=== PATIENT | female | born 1945 | race Caucasian/White ===

== ENCOUNTER 2016-10-28 09:33 | Emergency (ER) | payer OTHER ==
[~2016-10-28] VITALS: Ht 157.5 cm; Wt 120.0 kg
[~2016-10-28 09:33] MED LIST: ALLO300T2 PO; ASPI325T10 PO; DUONI NEB; FLUT1INH INH; GLIP5 PO; ISOS30TA3 PO; LASI20TA PO; METF850T PO; MOBI15TA PO; NITR.4 SL; OMEG12002 PO; PANT40IN3 PO; POTA10IN2 PO; PRED5TAB PO; RED600TA PO; SYMATAB PO; SYNT125T PO; Z.0.OXYGEN INH
[2016-10-28 09:35] VITALS: BP 139/94; PULSE 82; RESP 28; TEMP 97.7; O2SAT 95
[2016-10-28 10:04] VITALS: BP 190/92; PULSE 84; RESP 22
[2016-10-28 10:21] VITALS: O2SAT 97
[2016-10-28] MEDS ORDERED: SODIUM CHLORIDE 0.9% FLUSH 10 ML FLUSH IV FLUSH PRN (10:30)
[2016-10-28] MEDS ORDERED: hydrALAZINE HCL 20 MG/ML VIAL IV PUSH ONE (10:30)
[2016-10-28] MEDS ORDERED: RESP: BUDESONIDE 0.5 MG/2 ML NEB NEB ONE (10:30)
[2016-10-28 10:33] VITALS: BP 167/74; PULSE 78; RESP 20
[2016-10-28] MEDS: RESP: ALBUTEROL 2.5 MG/IPRATROPIUM 0.5 MG NEB (SCH) INH (10:43)
--- NOTE | 2016-10-28 10:43 | PD ---
HPI Chief Complaint: Cardiac Complaint Time Seen by Provider: 10:20 Travel History International Travel<30 days: No Contact w/Intl Traveler<30days: No Traveled to known affect area: No History of Present Illness HPI Patient is 71-year-old female presenting to emergency department for evaluation of left upper quadrant abdominal pain that radiates to her back. Patient states it started yesterday. She reports diarrhea for 2 days prior to the pain starting. She denies any fevers, chills, nausea, vomiting. She does report feeling gassy and having symptoms of indigestion. She reports being chronically short of breath secondary to COPD. She is on O2 at 2 L continuously. Patient did not take any of her home medications today. She reports that the pain is a 5 out of 10, it is not exacerbated or alleviated by anything. PFSH Past Medical History Arthritis: Yes Asthma: No Autoimmune Disease: No Blood Disorders: No Anxiety: No Depression: No Heart Rhythm Problems: No Cancer: No Cardiac Catheterization: Yes High Cholesterol: Yes Chemotherapy: No Chest Pain: Yes Congestive Heart Failure: Yes COPD: Yes Cerebrovascular Accident: No Coronary Artery Disease: Yes Diabetes: Yes (TYPE II) Patient Takes Glucophage: No Diminished Hearing: Yes GERD: Yes Glaucoma: No Gout: Yes Genitourinary: Yes (INCONTINENCE) Headaches: No Hepatitis: Yes Hiatal Hernia: No Hypertension: Yes Immune Disorder: No Kidney Stones: Yes Neurologic: Yes Psychiatric: No Reproductive: No Integumentary: Yes (LICHEN PSORIASIS) Migraines: No Myocardial Infarction: Yes Pneumonia: Yes Radiation Therapy: No Renal Failure: No Seizures: No Sleep Apnea: Yes (C-PAP AT NIGHT) Thyroid Disease: Yes Ulcer: No Menopausal: Yes : 5 Para: 5 Past Surgical History AICD: No Appendectomy: No Arteriovenous Shunt: No Body Medical Devices: CARDIAC STENTS, POSSIBLY HARDWARE LEFT LEG Section: Yes Cholecystectomy: Yes Coronary Stent: Yes (X2) Ear Surgery: Yes (RIGHT AND LEFT EAR (STAPES)) Endocrine Surgery: No Eye Surgery: No Genitourinary Surgery: Yes (BLADDER SLING ) Gynecologic Surgery: Yes () Insulin Pump: No Joint Replacement: No Neurologic Surgery: No Oral Surgery: No Pacemaker: No Thoracic Surgery: No Other Surgery: Yes Family History Family Hypercholesterolemia: Yes Social History Alcohol Use: No Tobacco Use: No Substance Use: No Allergies-Medications (Allergen,Severity, Reaction): Coded Allergies: Flagyl (Verified Allergy, Severe, Rash, 09/24/15) Lovastatin (Verified Allergy, Severe, STATINS GENERAL ALLERGY; CRAMPS IN LEGS, 09/24/15) 06/27/07: STATINS = LEG CRAMPS Metronidazole (Verified Allergy, Severe, 09/24/15) HMG-CoA Reductase Inhibitors (Verified Adverse Reaction, Severe, LEG CRAMPS, 09/24/15) Omeprazole (Verified Adverse Reaction, Intermediate, Cramping, 09/24/15) "UPSETS STOMACH" Reported Meds & Prescriptions Reported Meds & Active Scripts Active Review of Systems Except as stated in HPI: all other systems reviewed are Neg General / Constitutional: No: Fever, Chills HENT: No: Headaches Cardiovascular: Positive: Chest Pain or Discomfort Respiratory: Positive: Shortness of Breath (chronic) Gastrointestinal: Positive: Diarrhea, Abdominal Pain (left upper quadrant and epigastric), No: Nausea, Vomiting Genitourinary: No: Dysuria Musculoskeletal: No: Myalgias Neurologic: No: Weakness, Dizziness, Syncope, Focal Abnormalities Physical Exam Narrative GENERAL: Obese, well-developed, alert elderly female. Resting comfortably in no acute distress. SKIN: Warm and dry. HEAD: Atraumatic. Normocephalic. EYES: Pupils equal and round. No scleral icterus. No injection or drainage. ENT: No nasal bleeding or discharge. Mucous membranes pink and moist. NECK: Trachea midline. No JVD. CARDIOVASCULAR: Regular rate and rhythm. 2/6 systolic murmur RESPIRATORY: No accessory muscle use. Diminished breath sounds in bilateral lower lobes, scattered expiratory wheezes. GASTROINTESTINAL: Abdomen obese, soft, tender to palpation in left upper quadrant and epigastric region, nondistended. Hepatic and splenic margins not palpable. Positive bowel sounds. MUSCULOSKELETAL: Extremities without clubbing, cyanosis, or edema. No obvious deformities. NEUROLOGICAL: Awake and alert. No obvious cranial nerve deficits. Motor grossly within normal limits. Five out of 5 muscle strength in the arms and legs. Normal speech. PSYCHIATRIC: Appropriate mood and affect; insight and judgment normal. Data Data Last Documented VS Vital Signs Date Time Temp Pulse Resp B/P Pulse Ox O2 Delivery O2 Flow Rate FiO2 10/28/16 10:33 78 20 167/74 10/28/16 10:21 97 10/28/16 09:35 97.7 Room Air Orders Complete Blood Count With Diff (10/28/16 10:18) Comprehensive Metabolic Panel (10/28/16 10:18) Lipase (10/28/16 10:18) Lactic Acid (10/28/16 10:18) Prothrombin Time / Inr (Pt) (10/28/16 10:18) Act Partial Throm Time (Ptt) (10/28/16 10:18) Urinalysis - C+S If Indicated (10/28/16 10:18) Ct Abd/Pel W Iv Contrast(Rout) (10/28/16 10:18) Iv Access Insert/Monitor (10/28/16 10:18) Ecg Monitoring (10/28/16 10:18) Oximetry (10/28/16 10:18) NPO (10/28/16 10:18) Sodium Chloride 0.9% Flush (Ns Flush) (10/28/16 10:30) Electrocardiogram (10/28/16 10:18) Chest, Single Ap (10/28/16 ) Albuterol-Ipratropium Neb (Duoneb Neb) (10/28/16 10:30) Budesonide Neb (Pulmicort Respule Neb) (10/28/16 10:30) Hydralazine Inj (Apresoline Inj) (10/28/16 10:30) Labs Laboratory Tests Test 10/28/16 10:22 White Blood Count 11.1 TH/MM3 Red Blood Count 4.15 MIL/MM3 Hemoglobin 12.8 GM/DL Hematocrit 39.6 % Mean Corpuscular Volume 95.3 FL Mean Corpuscular Hemoglobin 30.7 PG Mean Corpuscular Hemoglobin 32.3 % Concent Red Cell Distribution Width 14.7 % Platelet Count 204 TH/MM3 Mean Platelet Volume 9.2 FL Neutrophils (%) (Auto) 61.1 % Lymphocytes (%) (Auto) 31.3 % Monocytes (%) (Auto) 5.7 % Eosinophils (%) (Auto) 1.0 % Basophils (%) (Auto) 0.9 % Neutrophils # (Auto) 6.8 TH/MM3 Lymphocytes # (Auto) 3.5 TH/MM3 Monocytes # (Auto) 0.6 TH/MM3 Eosinophils # (Auto) 0.1 TH/MM3 Basophils # (Auto) 0.1 TH/MM3 CBC Comment DIFF FINAL Differential Comment MDM Medical Decision Making Medical Screen Exam Complete: Yes Emergency Medical Condition: Yes Interpretation(s) Vital Signs Date Time Temp Pulse Resp B/P Pulse Ox O2 Delivery O2 Flow Rate FiO2 10/28/16 10:33 78 20 167/74 10/28/16 10:21 97 10/28/16 10:04 84 22 190/92 10/28/16 09:35 97.7 82 28 139/94 95 Room Air Differential Diagnosis Obstruction versus AAA versus gastritis versus metabolic abnormality versus less likely pulmonary embolism versus ACS versus other Narrative Course Patient is 71-year-old female presenting for evaluation of left upper quadrant abdominal pain started yesterday, symptoms were preceded by 2 days of diarrhea. Patient's blood pressure was elevated on arrival, was reassessed and her pressure has normalized. Patient is not taking any of her home medications this morning. IV access established, patient placed on telemetry monitoring and continuous pulse oximetry. Duo nebs and budesonide ordered. Care of patient transferred to [facility]ITAK[facility]. Debra Carr Oct 28, 2016 10:43
[2016-10-28 11:02] LABS: AUTOMATED NEUTROPHIL # 6.8 TH/MM3 (1.8-7.7); BASOPHIL # 0.1 TH/MM3 (0-0.2); BASOPHIL % 0.9 % (0.0-2.0); EOSINOPHIL # 0.1 TH/MM3 (0-0.4); HEMATOCRIT 39.6 % (35.0-46.0); HEMO FLAGS DIFF FINAL; LYMPH % 31.3 % (9.0-44.0); LYMPHOCYTE # 3.5 TH/MM3 (1.0-4.8); MEAN CELL VOLUME 95.3 FL (80.0-100.0); MEAN CORPUSCULAR HEMOGLOBIN 30.7 PG (27.0-34.0); MEAN CORPUSCULAR HGB CONC 32.3 % (32.0-36.0); MONO % 5.7 % (0.0-8.0); NEUT % 61.1 % (16.0-70.0); PLATELET COUNT 204 TH/MM3 (150-450); RED BLOOD COUNT 4.15 MIL/MM3 (4.00-5.30); RED CELL DISTRIBUTION WIDTH 14.7 % (11.6-17.2); WHITE BLOOD COUNT 11.1 TH/MM3 (4.0-11.0)
[2016-10-28 11:08] LABS: APTT (PATIENT) 24.8 SEC (24.3-30.1); PROTHROMBIN TIME - PATIENT 10.8 SEC (9.8-11.6)
--- NOTE | 2016-10-28 11:21 | PD ---
Physical Exam Date Seen by Provider: Oct 28, 2016 Time Seen by Provider: 11:20 Narrative 71 YO F presents to the ED for evaluation of ~36 hour history of RUQ pain that radiates to the back. RUQ pain preceded by 2 day history of watery diarrhea. Patient has PMH of COPD, requires 2 L by NC continuously. The patient was initially evaluated by MICHAEL Cerna, and signed out to me with labs pending. Please see her note for full H&P. On my exam: GENERAL: Morbidly obese white female in NAD. SKIN: Focused skin assessment warm/dry. Nickel sized bruise on the RUQ. HEAD: Normocephalic. EYES: No scleral icterus. No injection or drainage. NECK: Supple, trachea midline. No JVD or lymphadenopathy. CARDIOVASCULAR: Regular rate and rhythm without murmurs, gallops, or rubs. RESPIRATORY: Breath sounds clear and equal bilaterally. No accessory muscle use. GASTROINTESTINAL: Abdomen protuberant, soft, nondistended. Mild RUQ TTP. MUSCULOSKELETAL: No cyanosis, or edema. BACK: No obvious deformity. No CVA tenderness. ++ midline TTP in the midthoracic spine. Data Data Last Documented VS Vital Signs Date Time Temp Pulse Resp B/P Pulse Ox O2 Delivery O2 Flow Rate FiO2 10/28/16 11:33 82 20 157/67 10/28/16 10:21 97 10/28/16 09:35 97.7 Room Air Orders Complete Blood Count With Diff (10/28/16 10:18) Comprehensive Metabolic Panel (10/28/16 10:18) Lipase (10/28/16 10:18) Lactic Acid (10/28/16 10:18) Prothrombin Time / Inr (Pt) (10/28/16 10:18) Act Partial Throm Time (Ptt) (10/28/16 10:18) Urinalysis - C+S If Indicated (10/28/16 10:18) Ct Abd/Pel W Iv Contrast(Rout) (10/28/16 10:18) Iv Access Insert/Monitor (10/28/16 10:18) Ecg Monitoring (10/28/16 10:18) Oximetry (10/28/16 10:18) NPO (10/28/16 10:18) Sodium Chloride 0.9% Flush (Ns Flush) (10/28/16 10:30) Electrocardiogram (10/28/16 10:18) Chest, Single Ap (10/28/16 ) Albuterol-Ipratropium Neb (Duoneb Neb) (10/28/16 10:30) Budesonide Neb (Pulmicort Respule Neb) (10/28/16 10:30) Hydralazine Inj (Apresoline Inj) (10/28/16 10:30) Urine Culture (10/28/16 12:40) Nitrofurantoin Monohyd Macrocr (Macrobid (10/28/16 13:30) Ckmb (Isoenzyme) Profile (10/28/16 13:26) Troponin I (10/28/16 13:26) Iohexol 350 Inj (Omnipaque 350 Inj) (10/28/16 14:05) Spine, Thoracic-Ap/Lat/Sw(3vw) (10/28/16 15:15) Labs Laboratory Tests Test 10/28/16 10/28/16 10/28/16 10:22 10:27 12:40 White Blood Count 11.1 TH/MM3 Red Blood Count 4.15 MIL/MM3 Hemoglobin 12.8 GM/DL Hematocrit 39.6 % Mean Corpuscular Volume 95.3 FL Mean Corpuscular Hemoglobin 30.7 PG Mean Corpuscular Hemoglobin 32.3 % Concent Red Cell Distribution Width 14.7 % Platelet Count 204 TH/MM3 Mean Platelet Volume 9.2 FL Neutrophils (%) (Auto) 61.1 % Lymphocytes (%) (Auto) 31.3 % Monocytes (%) (Auto) 5.7 % Eosinophils (%) (Auto) 1.0 % Basophils (%) (Auto) 0.9 % Neutrophils # (Auto) 6.8 TH/MM3 Lymphocytes # (Auto) 3.5 TH/MM3 Monocytes # (Auto) 0.6 TH/MM3 Eosinophils # (Auto) 0.1 TH/MM3 Basophils # (Auto) 0.1 TH/MM3 CBC Comment DIFF FINAL Differential Comment Prothrombin Time 10.8 SEC Prothromb Time International 1.0 RATIO Ratio Activated Partial 24.8 SEC Thromboplast Time Sodium Level 141 MEQ/L Potassium Level 4.2 MEQ/L Chloride Level 106 MEQ/L Carbon Dioxide Level 25.0 MEQ/L Anion Gap 10 MEQ/L Blood Urea Nitrogen 24 MG/DL Creatinine 0.96 MG/DL Estimat Glomerular Filtration 57 ML/MIN Rate Random Glucose 102 MG/DL Calcium Level 9.0 MG/DL Total Bilirubin 0.4 MG/DL Aspartate Amino Transf 37 U/L (AST/SGOT) Alanine Aminotransferase 53 U/L (ALT/SGPT) Alkaline Phosphatase 80 U/L Total Creatine Kinase 55 U/L Troponin I LESS THAN 0.02 NG/ML Total Protein 6.7 GM/DL Albumin 3.4 GM/DL Lipase 120 U/L Lactic Acid Level 1.8 mmol/L Urine Color YELLOW Urine Turbidity CLEAR Urine pH 5.5 Urine Specific [place] 1.014 Urine Protein NEG mg/dL Urine Glucose (UA) NEG mg/dL Urine Ketones NEG mg/dL Urine Occult Blood NEG Urine Nitrite POS Urine Bilirubin NEG Urine Urobilinogen LESS THAN 2.0 MG/DL Urine Leukocyte Esterase SMALL Urine RBC LESS THAN 1 /hpf Urine WBC 5 /hpf Urine Squamous Epithelial <1 /hpf Cells Urine Bacteria FEW /hpf Urine Mucus FEW /lpf Microscopic Urinalysis Comment CULTURE INDICATED MDM Supervised Visit with DORENE: No Differential Diagnosis Gastritis versus paralytic ileus versus biliary obstruction versus bowel obstruction versus AAA versus compression fracture versus other Narrative Course 71 YO F presents to the ED for evaluation of ~36 hour history of RUQ pain that radiates to the back. RUQ pain preceded by 2 day history of watery diarrhea. Patient has PMH of COPD, requires 2 L by NC continuously. Vitals reviewed. Physical exam reveals a morbidly obese white female in no acute distress. There is an occult size bruise the right upper quadrant she is tender to palpation over this area. There is also midline tenderness in the midthoracic spine but the physical exam is otherwise unremarkable. EKG: rate 77, sinus rhythm. WY interval 154, QRS 84, QTC 414 ms. Normal axis. No concerning ST changes. Reviewed by Dr. Wayne. CXR: Left basilar pleural parenchymal disease. No acute abnormality or interval change radiology read. CMP: WBC 11.1, hemoglobin 12.8. INR: 1.0. CMP: Unremarkable. Lactic acid: 1.8. Lipase: 120. CT abdomen and pelvis: Several nonacute findings including enlarged liver and a 5 mm lesion in the right liver lobe. Thoracic spine x-ray: No compression fracture or subluxation. I discussed the results of the workup with the patient. I provided her a copy of the CT to take to her primary care provider. He is prescribed Macrobid 100 mg twice a day 7 days. First dose administered in the ED. She is instructed to follow-up with the primary care, take all medication as prescribed, return to the ED for worsening of symptoms. She indicated understanding of the instructions and is agreeable to a care plan. She stable and discharged home. Diagnosis Primary Impression: Urinary tract infection Qualified Code: N39.0 - Urinary tract infection without hematuria, site unspecified Referrals: Primary Care Physician Patient Instructions: General Instructions, Urinary Tract Infection in Women ( ED) Additional Instruction: Rest, hydrate. Take antibiotics as prescribed. Follow up with your primary care for further evaluation of your CT abnormalities as discussed. Return to the ED for any urgent or emergent medical condition. Med/Other Pt SpecificInfo: Prescription(s) given Scripts Nitrofurantoin Monohydrate Macrocrystals (Macrobid)100 Mg [id number] Mg PO BID 7 Days Ref 0 Prov:Jarek Wayne MD 10/28/16 Disposition: 01 DISCHARGE HOME Condition: Stable Elham Prieto Oct 28, 2016 11:21
[2016-10-28 11:26] LABS: ALT (GPT) 53 U/L (10-53); ANION GAP 10 MEQ/L (5-15); AST (GOT) 37 U/L (15-37); BLOOD UREA NITROGEN 24 MG/DL (7-18); CHLORIDE 106 MEQ/L (98-107); GLOMERULAR FILTRATION RATE 57 ML/MIN (>89); POTASSIUM 4.2 MEQ/L (3.5-5.1); SODIUM (NA) 141 MEQ/L (136-145)
[2016-10-28 11:29] LABS: ALKALINE PHOSPHATASE 80 U/L (45-117); TOTAL BILIRUBIN ADULT 0.4 MG/DL (0.2-1.0)
[2016-10-28] MEDS ORDERED: ASPI325T PO (11:29)
[2016-10-28] MEDS ORDERED: POTA10TA2 PO (11:29)
[2016-10-28] MEDS ORDERED: PRED5TAB PO (11:29)
[2016-10-28] MEDS ORDERED: RED600TA PO (11:29)
[2016-10-28] MEDS ORDERED: ALLO300T2 PO (11:29)
[2016-10-28] MEDS ORDERED: METF850T PO ×2 (11:29)
[2016-10-28] MEDS ORDERED: FURO1TAB62 PO (11:29)
[2016-10-28] MEDS ORDERED: GLIP5TAB8 PO (11:29)
[2016-10-28] MEDS ORDERED: IPRASOL NEB (11:29)
[2016-10-28] MEDS ORDERED: FLUT1INH7 INH (11:29)
[2016-10-28] MEDS ORDERED: LEVO125T4 PO (11:29)
[2016-10-28] MEDS ORDERED: MOBI15TA PO (11:29)
[2016-10-28] MEDS ORDERED: ATOR20TA15 PO (11:30)
[2016-10-28 11:33] VITALS: BP 157/67; PULSE 82; RESP 20
--- NOTE | 2016-10-28 12:00 | RADRPT ---
EXAM DATE/TIME: 10/28/2016 10:36 [facility] COMPARISON: CHEST SINGLE AP, September 01, 2014, 10:16. INDICATIONS : Short of breath, chest pain.. MEDICAL HISTORY : Congestive heart failure. Diabetes mellitus type II. Chronic obstructive pulmonary disease. SURGICAL HISTORY : Coronary artery stent. ENCOUNTER: Initial ACUITY: 1 day PAIN SCORE: 9/10 LOCATION: Bilateral chest FINDINGS: Stable left basilar airspace disease with slightly increased associated volume loss and blunting of t he left costophrenic angle. Cardiomediastinal contours are stable. Bony thorax is intact. CONCLUSION: 1. Slightly more prominent chronic appearing left basilar pleural-parenchymal disease. 2. Otherwise, no acute abnormality or significant interval change. Corky Lawler MD on October 28, 2016 at 11:57 Board Certified Radiologist. This report was verified electronically.
[2016-10-28 13:01] LABS: BACTERIA, URINE FEW /hpf; BLOOD, URINE NEG (NEG); COMMENT (UR) CULTURE INDICATED; CULTURE IF INDICATED CULTURE INDICATED; GLUCOSE,URINE NEG (NEG); KETONE, URINE NEG (NEG); MUCUS URINE FEW /lpf (OCC); PH, URINE 5.5 (5.0-8.5); SQUAMOUS EPITHELIAL CELL URINE <1 /hpf (0-5); URINE COLOR YELLOW (YELLW/STRAW)
[2016-10-28 13:02] LABS: NITRITE,URINE POS (NEG)
[2016-10-28] MEDS ORDERED: MACR100C2 PO (13:19)
[2016-10-28] MEDS ORDERED: NITROFURANTOIN MONOHYD MACROCR 100 MG CAP PO ONE (13:30)
[2016-10-28] MEDS ORDERED: IOHEXOL 350 MG/ML 10 ML VIAL (for RAD DIAG) IV ONE (14:05)
--- NOTE | 2016-10-28 14:36 | RADRPT ---
EXAM DATE/TIME: 10/28/2016 13:56 [facility] COMPARISON: No previous studies available for comparison. INDICATIONS : Bilateral upper quadrant pain. IV CONTRAST: 92 cc Omnipaque 350 (iohexol) IV ORAL CONTRAST: No oral contrast ingested. RADIATION DOSE: 27.81 CTDIvol (mGy) ; Patient body habitus MEDICAL HISTORY : Cardiovascular disease. Diabetes mellitus type 2. SURGICAL HISTORY : Cholecystectomy. Bladder sling ENCOUNTER: Initial ACUITY: 2 days PAIN SCALE: 4/10 LOCATION: Bilateral upper quadrant TECHNIQUE: Volumetric scanning of the abdomen and pelvis was performed. Using automated exposure control and ad justment of the mA and/or kV according to patient size, radiation dose was kept as low as reasonably achievable to obtain optimal diagnostic quality images. DICOM format image data is available electro nically for review and comparison. FINDINGS: The liver is enlarged and demonstrates mild diffuse decreased attenuation as well as nodular contour suggesting possible cirrhosis. Clinical correlation is recommended. There is a tiny 5 mm low density lesion wi thin the right lobe of the liver near the dome which is too small for accurate density measurement. No biliary duct al dilatation is noted. the gallbladder has been resected. The spleen is minimally enlarged. The pancreas is nor mal. The adrenal glands are normal bilaterally. The kidneys enhance briskly and demonstrate no evidence of fo licha mass or hydronephrosis. The abdominal aorta is calcified and is ectatic but not significantly aneurysmally d ilated. The inferior vena cava is normal. There is no paraaortic, retroperitoneal or mesenteric lymphadenopathy. Uncomplicated colonic diverticulosis is noted. No acute diverticulitis is noted. The urinary bladde r is unremarkable. No ascites is noted. No lymphadenopathy is noted. Mild degenerative changes are note d throughout the thoracolumbar spine. The visualized lung bases demonstrate scattered atelectasis and/ or scarring. CONCLUSION: 1. Enlarged nodular liver with mild diffuse decreased attenuation suggesting possible cirrhosis. Cl inical correlation is recommended. 2. Uncomplicated colonic diverticulosis. 3. Mild splenomegaly. 4. Scattered atelectasis and/or fibrotic scarring within the lung bases. 5. Tiny 5 mm low density lesion within the right lobe of the liver near the dome which is too small for accurate density measurement. Quentin Altamirano MD on October 28, 2016 at 14:20 Board Certified Radiologist. This report was verified electronically.
[2016-10-28 15:28] LABS: CREATINE KINASE 55 U/L (26-192)
--- NOTE | 2016-10-28 16:36 | RADRPT ---
EXAM DATE/TIME: 10/28/2016 15:39 [facility] COMPARISON: No previous studies available for comparison. INDICATIONS : Patient complains of upper back pain. No known injury. MEDICAL HISTORY : None. SURGICAL HISTORY : None. ENCOUNTER: Initial ACUITY: 3 days PAIN SCORE: 7/10 LOCATION: T-Spine FINDINGS: Mild degenerative changes are noted throughout the thoracic spine. There is no acute compression fra cture or subluxation. CONCLUSION: 1. No acute compression fracture or subluxation. 2. Mild degenerative changes within the thoracic spine. Quentin Altamirano MD on October 28, 2016 at 16:30 Board Certified Radiologist. This report was verified electronically.
--- NOTE | 2016-10-28 20:15 | EKG ---
Date Performed: 10/28/2016 Time Performed: 09:45:15 PTAGE: 71 years EKG: Sinus rhythm MODERATE T-WAVE ABNORMALITY, CONSIDER ANTERIOR ISCHEMIA ABNORMAL ECG PREVIOUS TRACING : 09/24/2015 09.55 Compared to prior tracing no significant change DOCTOR: Jamison Chavarria Interpretating Date/Time 10/28/2016 20:14:11
== END 2016-10-28 16:19 | disposition home or self-care (01) ==
LOC: NEPE 09:33
DX: N39.0 Urinary tract infection, site not specified (principal); B96.20 Unspecified Escherichia coli [E. coli] as the cause of diseases classified elsewhere; R16.0 Hepatomegaly, not elsewhere classified; R07.9 Chest pain, unspecified; K57.30 Diverticulosis of large intestine without perforation or abscess without bleeding; R16.1 Splenomegaly, not elsewhere classified; J44.9 Chronic obstructive pulmonary disease, unspecified; E66.01 Morbid (severe) obesity due to excess calories; R94.31 Abnormal electrocardiogram [ECG] [EKG]
CPT/HCPCS: 71010; 72072; 74177; 80053; 81001; 82550; 83605; 83690; 84484; 85025; 85610; 85730; 87077; 87086; 87186; 93005; 94640; 94664; 99285; J7626; Q9967

== ENCOUNTER 2016-11-03 14:25 | Inpatient (IN) | payer OTHER, MEDICARE ==
[~2016-11-03] VITALS: Ht 157.5 cm; Wt 124.8 kg
[~2016-11-03 14:25] MED LIST changes: +ASPI325T PO; -ASPI325T10 PO; +ATOR20TA15 PO; -DUONI NEB; -FLUT1INH INH; +FLUT1INH7 INH; +FURO1TAB62 PO; -GLIP5 PO; +GLIP5TAB8 PO; +IPRASOL NEB; -ISOS30TA3 PO; -LASI20TA PO; +LEVO125T4 PO; +MACR100C2 PO; -NITR.4 SL; -OMEG12002 PO; -PANT40IN3 PO; -POTA10IN2 PO; +POTA10TA2 PO; -SYMATAB PO; -SYNT125T PO; -Z.0.OXYGEN INH
[2016-11-03 14:28] VITALS: BP 141/70; PULSE 105; RESP 22; TEMP 97.4; O2SAT 94
--- NOTE | 2016-11-03 14:50 | PD ---
HPI Chief Complaint: Abdominal Pain Time Seen by Provider: 14:50 Travel History International Travel<30 days: No Contact w/Intl Traveler<30days: No Traveled to known affect area: No History of Present Illness HPI 71 YO F presents to the ED for evaluation of left upper quadrant abdominal pain , nausea, vomiting, diarrhea 4 days. She denies fever or chills, chest pain, shortness of breath. Patient was seen in the ED by this provider on 10/28, had a complete workup an abdominal CT scan which were negative. She did have a UTI and was provided with a course of Macrobid. She endorses compliance with the medication but states that her nausea and pain have not gone away. She states that she's been taking 5-10 Tums daily, "even though they don't help my pain." PFSH Past Medical History Arthritis: Yes Asthma: No Autoimmune Disease: No Blood Disorders: No Anxiety: No Depression: No Heart Rhythm Problems: No Cancer: No Cardiac Catheterization: Yes Cardiovascular Problems: Yes High Cholesterol: Yes Chemotherapy: No Chest Pain: Yes Congestive Heart Failure: Yes COPD: Yes Cerebrovascular Accident: No Coronary Artery Disease: Yes Diabetes: Yes Diminished Hearing: Yes GERD: Yes Glaucoma: No Gout: Yes Genitourinary: Yes (INCONTINENCE) Headaches: No Hepatitis: Yes Hiatal Hernia: No Hypertension: Yes Immune Disorder: No Kidney Stones: Yes Neurologic: Yes Psychiatric: No Reproductive: No Respiratory: Yes (COPD) Integumentary: Yes (LICHEN PSORIASIS) Migraines: No Myocardial Infarction: Yes Pneumonia: Yes Radiation Therapy: No Renal Failure: No Seizures: No Sleep Apnea: Yes (C-PAP AT NIGHT) Thyroid Disease: Yes Ulcer: No Menopausal: Yes : 5 Para: 5 Past Surgical History AICD: No Appendectomy: No Arteriovenous Shunt: No Body Medical Devices: CARDIAC STENTS, POSSIBLY HARDWARE LEFT LEG Section: Yes Cholecystectomy: Yes Coronary Stent: Yes (X2) Ear Surgery: Yes (RIGHT AND LEFT EAR (STAPES)) Endocrine Surgery: No Eye Surgery: No Genitourinary Surgery: Yes (BLADDER SLING ) Gynecologic Surgery: Yes () Insulin Pump: No Joint Replacement: No Neurologic Surgery: No Oral Surgery: No Pacemaker: No Thoracic Surgery: No Other Surgery: Yes Family History Family Hypercholesterolemia: Yes Social History Alcohol Use: No Tobacco Use: No Substance Use: No Allergies-Medications (Allergen,Severity, Reaction): Coded Allergies: Flagyl (Verified Allergy, Severe, Rash, 11/03/16) Lovastatin (Verified Allergy, Severe, STATINS GENERAL ALLERGY; CRAMPS IN LEGS, 11/03/16) 06/27/07: STATINS = LEG CRAMPS Metronidazole (Verified Allergy, Severe, 11/03/16) HMG-CoA Reductase Inhibitors (Verified Adverse Reaction, Severe, LEG CRAMPS, 11/03/16) Omeprazole (Verified Adverse Reaction, Intermediate, Cramping, 11/03/16) "UPSETS STOMACH" Reported Meds & Prescriptions Reported Meds & Active Scripts Active Macrobid (Nitrofurantoin Monoh/Nitrofur Macro) 100 Mg Cap 100 Mg PO BID 7 Days Reported Atorvastatin (Atorvastatin Calcium) 20 Mg Tab 20 Mg PO HS Duoneb (Ipratropium-Albuterol Neb) 0.5-2.5 Mg/3 Ml Neb 3 Ml NEB QID Breo Ellipta Inh (Fluticasone/Vilanterol) 200-25 Mcg/Act Inh 1 Puff INH DAILY Use daily at the same time. Levothyroxine (Levothyroxine Sodium) 125 Mcg Tab 125 Mcg PO DAILY Lasix (Furosemide) 20 Mg Tab 20 Mg PO DAILY Mobic (Meloxicam) 15 Mg Tab 15 Mg PO DAILY Allopurinol 300 Mg Tab 300 Mg PO DAILY Glipizide 5 Mg Tab 5 Mg PO BID Take 30 minutes before a meal Potassium Chloride ER (Potassium Chloride) 10 Meq Tab 10 Meq PO DAILY Aspirin 325 Mg Tab 325 Mg PO DAILY Metformin (Metformin HCl) 850 Mg Tab 850 Mg PO DAILY IN THE PM With a meal Metformin (Metformin HCl) 850 Mg Tab 1,700 Mg PO DAILY IN THE AM With a meal Prednisone 5 Mg Tab 5 Mg PO BID Review of Systems Except as stated in HPI: all other systems reviewed are Neg Physical Exam Narrative GENERAL: Well-nourished, well-developed morbidly obese white female in no acute distress. SKIN: Focused skin assessment warm/dry. HEAD: Normocephalic. EYES: No scleral icterus. No injection or drainage. NECK: Supple, trachea midline. No JVD or lymphadenopathy. CARDIOVASCULAR: Regular rate and rhythm without murmurs, gallops, or rubs. RESPIRATORY: Breath sounds clear and equal bilaterally. No accessory muscle use. GASTROINTESTINAL: Abdomen soft, nondistended, diffusely tender, active bowel sounds. MUSCULOSKELETAL: No cyanosis, or edema. BACK: Nontender without obvious deformity. No CVA tenderness. Data Data Last Documented VS Vital Signs Date Time Temp Pulse Resp B/P Pulse Ox O2 Delivery O2 Flow Rate FiO2 11/03/16 14:28 97.4 105 22 141/70 94 Orders Complete Blood Count With Diff (11/03/16 15:06) Comprehensive Metabolic Panel (11/03/16 15:06) Lipase (11/03/16 15:06) Urinalysis - C+S If Indicated (11/03/16 15:06) Sodium Chlor 0.9% 1000 Ml Inj (Ns 1000 M (11/03/16 15:06) Ondansetron Inj (Zofran Inj) (11/03/16 15:15) Electrocardiogram (11/03/16 15:08) Ckmb (Isoenzyme) Profile (11/03/16 15:08) Troponin I (11/03/16 15:08) Chest, Single Ap (11/03/16 15:08) Ondansetron Inj (Zofran Inj) (11/03/16 16:15) Sodium Chlorid 0.9% 500 Ml Inj (Ns 500 M (11/03/16 17:00) Urine Culture (11/03/16 15:50) Sodium Chlor 0.9% 1000 Ml Inj (Ns 1000 M (11/03/16 17:30) Admit Order (Ed Use Only) (11/03/16 17:33) Admit To Inpatient (11/03/16 ) Vital Signs (Adult) Q4H (11/03/16 17:33) Activity Oob With Assistance (11/03/16 17:33) Telecommunications Administrator / Telemetry .CONTINUOUS (11/03/16 17:33) Intake + Output POLI.QSHIFT (11/03/16 17:33) Diet 1800 Ada Cons Carb (11/03/16 Dinner) Sodium Chlor 0.9% 1000 Ml Inj (Ns 1000 M (11/03/16 20:00) Sodium Chloride 0.9% Flush (Ns Flush) (11/03/16 17:45) Sodium Chloride 0.9% Flush (Ns Flush) (11/03/16 21:00) Ondansetron Inj (Zofran Inj) (11/03/16 20:00) Comprehensive Metabolic Panel (11/04/16 06:00) Complete Blood Count With Diff (11/04/16 06:00) Case Management Consult (11/03/16 17:33) Scd Bilateral/Knee High POLI.BID (11/03/16 17:33) Naloxone Inj (Narcan Inj) (11/03/16 17:45) Docusate Sodium-Senna ([place]-Colace) (11/03/16 21:00) Magnesium Hydroxide Liq (Milk Of Magnesi (11/03/16 17:45) Sennosides (Senokot) (11/03/16 17:45) Bisacodyl Supp (Dulcolax Supp) (11/03/16 17:45) Lactulose Liq (Lactulose Liq) (11/03/16 17:45) Inpatient Certification (11/03/16 ) Labs Laboratory Tests Test 11/03/16 15:50 White Blood Count 14.0 TH/MM3 Red Blood Count 4.67 MIL/MM3 Hemoglobin 14.0 GM/DL Hematocrit 44.1 % Mean Corpuscular Volume 94.5 FL Mean Corpuscular Hemoglobin 30.0 PG Mean Corpuscular Hemoglobin 31.7 % Concent Red Cell Distribution Width 14.9 % Platelet Count 258 TH/MM3 Mean Platelet Volume 8.8 FL Neutrophils (%) (Auto) 59.5 % Lymphocytes (%) (Auto) 30.9 % Monocytes (%) (Auto) 7.3 % Eosinophils (%) (Auto) 1.3 % Basophils (%) (Auto) 1.0 % Neutrophils # (Auto) 8.3 TH/MM3 Lymphocytes # (Auto) 4.3 TH/MM3 Monocytes # (Auto) 1.0 TH/MM3 Eosinophils # (Auto) 0.2 TH/MM3 Basophils # (Auto) 0.1 TH/MM3 CBC Comment DIFF FINAL Differential Comment Urine Color YELLOW Urine Turbidity HAZY Urine pH 5.5 Urine Specific [place] 1.025 Urine Protein TRACE mg/dL Urine Glucose (UA) NEG mg/dL Urine Ketones NEG mg/dL Urine Occult Blood NEG Urine Nitrite NEG Urine Bilirubin NEG Urine Urobilinogen LESS THAN 2.0 MG/DL Urine Leukocyte Esterase MOD Urine RBC LESS THAN 1 /hpf Urine WBC 21 /hpf Urine Squamous Epithelial 2 /hpf Cells Urine Bacteria OCC /hpf Urine Hyaline Casts 2 /lpf Urine Mucus FEW /lpf Microscopic Urinalysis Comment CULTURE INDICATED Sodium Level 135 MEQ/L Potassium Level 4.1 MEQ/L Chloride Level 95 MEQ/L Carbon Dioxide Level 29.7 MEQ/L Anion Gap 10 MEQ/L Blood Urea Nitrogen 16 MG/DL Creatinine 1.09 MG/DL Estimat Glomerular Filtration 49 ML/MIN Rate Random Glucose 131 MG/DL Calcium Level 14.5 MG/DL Protein Corrected Calcium 14.2 MG/DL Total Bilirubin 0.5 MG/DL Aspartate Amino Transf 45 U/L (AST/SGOT) Alanine Aminotransferase 57 U/L (ALT/SGPT) Alkaline Phosphatase 89 U/L Total Creatine Kinase 56 U/L Troponin I LESS THAN 0.02 NG/ML Total Protein 7.5 GM/DL Albumin 3.8 GM/DL Lipase 77 U/L Thyroid Stimulating Hormone 5.150 uIU/ML 3rd Gen [facility] Medical Decision Making Medical Screen Exam Complete: Yes Emergency Medical Condition: Yes Differential Diagnosis gastritis versus diabetic gastroparesis versus musculoskeletal pain versus hiatal hernia versus angina versus ACS versus failed outpatient UTI treatment versus other Narrative Course 71 YO F presents to the ED for evaluation of left upper quadrant abdominal pain , nausea, vomiting, diarrhea 4 days. She denies fever or chills, chest pain, shortness of breath. Patient was seen in the ED by this provider on 10/28, had a complete workup and an abdominal CT scan which were negative. She did have a UTI and was provided with a course of Macrobid. Endorses compliance with meds. She states that she's been taking 5-10 Tums daily, "even though they don't help my pain." Vitals reviewed. Physical exam reveals an obese white female in no acute distress. The abdomen is diffusely tender with the physical exam is otherwise unremarkable. The standard half liter normal saline, 4 mg Zofran. Lab work reveals leukocytosis of 14.0, protein corrected calcium of 12.3, creatinine 1.0, BUN, 16, B GL 188. Culture of the UA is pending. No acute findings on the CXR. No acute findings on the EKG. Unsure of the source of her pain, the 2 workups in the ED have not revealed a source. Certainly musculoskeletal pain is on the differential considering her history of retching and vomiting. Given the hypocalcemia and failed outpatient treatment of the UTI will admit to the medicine service. Patient is agreeable to this. I spoke with Dr. Reyes who agrees to accept the patient. Please see medicine note for disposition. Elham Prieto Nov 03, 2016 14:50
[2016-11-03] MEDS ORDERED: SODIUM CHLOR 0.9% 1000 ML INJ 1,000 ML IV SCH (15:06)
[2016-11-03] MEDS ORDERED: ONDANSETRON HCL 4 MG/2 ML VIAL IV PUSH ONE ×2 (15:15→16:15)
--- NOTE | 2016-11-03 15:53 | RADRPT ---
EXAM DATE/TIME: 11/03/2016 15:07 [facility] COMPARISON: CT ABDOMEN & PELVIS W CONTRAST, October 28, 2016, 13:56. CHEST SINGLE AP, July 27, 2013, 14:01. CHEST SINGLE AP, September 01, 2014, 10:16. CHEST SINGLE AP, October 28, 2016, 10:36. INDICATIONS : Pain in chest and abdomen, and vomiting for 9 days MEDICAL HISTORY : Congestive heart failure. Diabetes mellitus type II. Chronic obstructive pulmonary disease. cardi ovascular disease SURGICAL HISTORY : Coronary artery stent. ENCOUNTER: Sequela ACUITY: 1 week PAIN SCORE: 5/10 LOCATION: Bilateral chest FINDINGS: Portable AP view of the chest demonstrates a normal-sized cardiac silhouette. Lungs are underinflated with chronic blunting left costophrenic sulcus and atelectasis versus scar at the left lung base. No pleural effusion or pneumothorax is identified. Bones and soft tissues demonstrate no acute finding. CONCLUSION: Stable chest x-ray without acute finding. The chronic blunting of the left costophrenic sulcus has be en demonstrated to represent an enlarged pericardial fat pad with adjacent atelectasis or scar. Patric Traylor MD on November 03, 2016 at 15:49 Board Certified Radiologist. This report was verified electronically.
[2016-11-03 16:32] LABS: AUTOMATED NEUTROPHIL # 8.3 TH/MM3 (1.8-7.7); BASOPHIL # 0.1 TH/MM3 (0-0.2); EOSINOPHIL # 0.2 TH/MM3 (0-0.4); EOSINOPHIL % 1.3 % (0.0-4.0); HEMATOCRIT 44.1 % (35.0-46.0); HEMO FLAGS DIFF FINAL; LYMPH % 30.9 % (9.0-44.0); LYMPHOCYTE # 4.3 TH/MM3 (1.0-4.8); MEAN CELL VOLUME 94.5 FL (80.0-100.0); MEAN CORPUSCULAR HGB CONC 31.7 % (32.0-36.0); MONO % 7.3 % (0.0-8.0); NEUT % 59.5 % (16.0-70.0); PLATELET COUNT 258 TH/MM3 (150-450); RED BLOOD COUNT 4.67 MIL/MM3 (4.00-5.30); RED CELL DISTRIBUTION WIDTH 14.9 % (11.6-17.2)
[2016-11-03] MEDS ORDERED: SODIUM CHLORID 0.9% 500 ML INJ 500 ML IV ONE (17:00)
[2016-11-03 17:05] LABS: BACTERIA, URINE OCC /hpf; BLOOD, URINE NEG (NEG); COMMENT (UR) CULTURE INDICATED; CULTURE IF INDICATED CULTURE INDICATED; GLUCOSE,URINE NEG (NEG); HYALINE CAST, URINE 2 /lpf (RARE); KETONE, URINE NEG (NEG); MUCUS URINE FEW /lpf (OCC); NITRITE,URINE NEG (NEG); PH, URINE 5.5 (5.0-8.5); SQUAMOUS EPITHELIAL CELL URINE 2 /hpf (0-5); URINE COLOR YELLOW (YELLW/STRAW)
--- NOTE | 2016-11-03 17:11 | PD ---
Data Data Last Documented VS Vital Signs Date Time Temp Pulse Resp B/P Pulse Ox O2 Delivery O2 Flow Rate FiO2 11/03/16 14:28 97.4 105 22 141/70 94 Orders Complete Blood Count With Diff (11/03/16 15:06) Comprehensive Metabolic Panel (11/03/16 15:06) Lipase (11/03/16 15:06) Urinalysis - C+S If Indicated (11/03/16 15:06) Sodium Chlor 0.9% 1000 Ml Inj (Ns 1000 M (11/03/16 15:06) Ondansetron Inj (Zofran Inj) (11/03/16 15:15) Electrocardiogram (11/03/16 15:08) Ckmb (Isoenzyme) Profile (11/03/16 15:08) Troponin I (11/03/16 15:08) Chest, Single Ap (11/03/16 15:08) Ondansetron Inj (Zofran Inj) (11/03/16 16:15) Sodium Chlorid 0.9% 500 Ml Inj (Ns 500 M (11/03/16 17:00) Labs Laboratory Tests Test 11/03/16 15:50 White Blood Count 14.0 TH/MM3 Red Blood Count 4.67 MIL/MM3 Hemoglobin 14.0 GM/DL Hematocrit 44.1 % Mean Corpuscular Volume 94.5 FL Mean Corpuscular Hemoglobin 30.0 PG Mean Corpuscular Hemoglobin 31.7 % Concent Red Cell Distribution Width 14.9 % Platelet Count 258 TH/MM3 Mean Platelet Volume 8.8 FL Neutrophils (%) (Auto) 59.5 % Lymphocytes (%) (Auto) 30.9 % Monocytes (%) (Auto) 7.3 % Eosinophils (%) (Auto) 1.3 % Basophils (%) (Auto) 1.0 % Neutrophils # (Auto) 8.3 TH/MM3 Lymphocytes # (Auto) 4.3 TH/MM3 Monocytes # (Auto) 1.0 TH/MM3 Eosinophils # (Auto) 0.2 TH/MM3 Basophils # (Auto) 0.1 TH/MM3 CBC Comment DIFF FINAL Differential Comment MDM Supervised Visit with DORENE: Yes Narrative Course The history, exam, and medical decision-making in the associated midlevel provider note were completed with my assistance. I reviewed and agree with the findings presented. I attest that I had a [id number] encounter with the patient on the same day, and personally performed and documented my assessment and findings in the medical record. *My assessment and Findings: This is a 71-year-old female who has a history of type 2 diabetes and coronary artery disease who presents to the emergency department with nausea vomiting diarrhea and abdominal discomfort that's been going on for 4 days. 4 days ago she was seen in the emergency department, had normal labs and was treated for urinary tract infection with Macrobid. A CT abdomen and pelvis was unremarkable at that time. Today she presents with worsening discomfort and continued diarrhea. She appears dehydrated on exam, was slightly tachycardic and has leukocytosis of 14. Electrolytes are still pending but I think the patient would benefit based on her clinical appearance from observation for symptomatic management in the setting of a likely gastroenteritis. I Don't think we need to re-CT scan her at this time as she has had a cholecystectomy in the past and I don't suspect a surgical etiology of her symptoms. Shilpa Mason MD Nov 03, 2016 17:11
[2016-11-03 17:14] LABS: CREATINE KINASE 56 U/L (26-192)
[2016-11-03 17:15] LABS: BICARBONATE 29.7 MEQ/L (21.0-32.0); POTASSIUM 4.1 MEQ/L (3.5-5.1); TOTAL BILIRUBIN ADULT 0.5 MG/DL (0.2-1.0)
[2016-11-03 17:19] LABS: CALCIUM-PROTEIN CORRECTED 14.2 MG/DL (8.5-10.1)
[2016-11-03] MEDS ORDERED: SODIUM CHLOR 0.9% 1000 ML INJ 1,000 ML IV ONE (17:30)
--- NOTE | 2016-11-03 17:40 | HHI.HP ---
[facility] Gage Finley M.D. Admission Diagnosis hypercalcemia, abdominal pain Diagnoses: Chief Complaint: abdominal pain, N/V, diahrea Travel History International Travel<30 Days: No Contact w/Intl Traveler <30 Da: No Traveled to Known Affected Are: No History of Present Illness Written by Ashley Patton, acting as scribe for Dr. Reyes on 11/03/16 at 18 :20. 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 Patient was seen in ER 4 days ago was treated for urinary tract infection with Macrobid. A CT abdomen and pelvis was unremarkable at that time. Today she presents with abdominal pain for the past 1.5 weeks. Patient reports the pain waxes and wains in intensity is associated with N/V and Diarrhea. Stool described as three brown, "mushy," BMs per day. Patient denies black tarry stool or bright red blood per rectum. Patient also denies coffee ground appearance to vomitions or bright red blood in vomit. Patient has been taking Tums OTC at home with no relief. Patient also endorses fatigue and posterior headache without nuchal rigidity. Patient denies fevers, chills, chest pain, change in baseline shortness fo breath due to her COPD, no focal weakness, changes in vision, dysuria or increased urinary frequency. Patient is unsure if she has lost any weight. Review of Systems Except as stated in HPI: all other systems reviewed are Neg Past Family Social History Past Medical History type 2 diabetes, hypothyroidism, coronary artery disease, Oxygen dependent COPD on 2L Past Surgical History ear surgery, C section, LLE repair after fracture Reported Medications Macrobid (Nitrofurantoin Monoh/Nitrofur Macro) 100 Mg Cap 100 Mg PO BID 7 Days Atorvastatin (Atorvastatin Calcium) 20 Mg Tab 20 Mg PO HS Duoneb (Ipratropium-Albuterol Neb) 0.5-2.5 Mg/3 Ml Neb 3 Ml NEB QID Breo Ellipta Inh (Fluticasone/Vilanterol) 200-25 Mcg/Act Inh 1 Puff INH DAILY Use daily at the same time. Levothyroxine (Levothyroxine Sodium) 125 Mcg Tab 125 Mcg PO DAILY Lasix (Furosemide) 20 Mg Tab 20 Mg PO DAILY Mobic (Meloxicam) 15 Mg Tab 15 Mg PO DAILY Allopurinol 300 Mg Tab 300 Mg PO DAILY Glipizide 5 Mg Tab 5 Mg PO BID Take 30 minutes before a meal Potassium Chloride ER (Potassium Chloride) 10 Meq Tab 10 Meq PO DAILY Aspirin 325 Mg Tab 325 Mg PO DAILY Metformin (Metformin HCl) 850 Mg Tab 850 Mg PO DAILY IN THE PM With a meal Metformin (Metformin HCl) 850 Mg Tab 1,700 Mg PO DAILY IN THE AM With a meal Prednisone 5 Mg Tab 5 Mg PO BID Allergies: Coded Allergies: Flagyl (Verified Allergy, Severe, Rash, 11/03/16) Lovastatin (Verified Allergy, Severe, STATINS GENERAL ALLERGY; CRAMPS IN LEGS, 11/03/16) 06/27/07: STATINS = LEG CRAMPS Metronidazole (Verified Allergy, Severe, 11/03/16) HMG-CoA Reductase Inhibitors (Verified Adverse Reaction, Severe, LEG CRAMPS, 11/03/16) Omeprazole (Verified Adverse Reaction, Intermediate, Cramping, 11/03/16) "UPSETS STOMACH" Active Ordered Medications Current Medications Medications (Trade) Dose Ordered Sig/Moris Route Start Time Stop Time Status Last Admin Sodium Chloride 1,000 ml @ 999 mls/hr BOLUS ONCE IV 11/03/16 17:30 11/03/16 18:30 (NS 1000 ml Inj) 1,000 ml @ 100 mls/hr Q10H IV 11/03/16 17:33 UNV (NS Flush) 2 ml UNSCH PRN IV FLUSH 11/03/16 17:45 UNV (NS Flush) 2 ml BID IV FLUSH 11/03/16 21:00 UNV (Zofran Inj) 4 mg Q6H PRN IVP 11/03/16 17:45 UNV (Narcan Inj) 0.4 mg UNSCH PRN IV 11/03/16 17:45 UNV ([place]-Colace) 1 tab BID PO 11/03/16 21:00 UNV (Milk Of Magnesia Liq) 30 ml Q12H PRN PO 11/03/16 17:45 UNV (Senokot) 17.2 mg Q12H PRN PO 11/03/16 17:45 UNV (Dulcolax Supp) 10 mg DAILY PRN RECTAL 11/03/16 17:45 UNV (Lactulose Liq) 30 ml DAILY PRN PO 11/03/16 17:45 UNV (Zyloprim) 300 mg DAILY PO 11/04/16 09:00 UNV (Aspirin) 325 mg DAILY PO 11/04/16 09:00 UNV (Lipitor) 20 mg HS PO 11/03/16 21:00 UNV (Breo Ellipta 200-25 Inh) 1 puff DAILY INH 11/04/16 09:00 UNV (Lasix) 20 mg DAILY PO 11/04/16 09:00 UNV (Glucotrol) 5 mg BID PO 11/03/16 21:00 UNV (Duoneb Neb) 1 ampule QID NEB 11/03/16 18:00 UNV (Synthroid) 125 mcg DAILY PO 11/04/16 09:00 UNV (Deltasone) 5 mg BID PO 11/03/16 21:00 UNV Family History Mother had heart disease can not recall age of onset, at 82 years old Father was a coal minor had COPD, "black Lung," at age 65 Social History Quit smoking in 1997, smoked 1 PPD for 20 years denies ETOH use or illicit drug use Physical Exam Vital Signs Vital Signs Date Time Temp Pulse Resp B/P Pulse Ox O2 Delivery O2 Flow Rate FiO2 11/03/16 14:28 97.4 105 22 141/70 94 Physical Exam GENERAL: This is a morbidly obese female patient appears uncomfortable but in no acute distress SKIN: No rashes, ecchymoses or lesions. Cool and dry. HEAD: Atraumatic. Normocephalic. No temporal or scalp tenderness. EYES: Pupils equal round and reactive. Extraocular motions intact. No scleral icterus. No injection or drainage. ENT: Nose without bleeding, purulent drainage or septal hematoma. Throat without erythema, tonsillar hypertrophy or exudate. Uvula midline. Airway patent. NECK: Trachea midline. No JVD or lymphadenopathy. Supple, nontender, no meningeal signs. CARDIOVASCULAR: Regular rate and rhythm without murmurs, gallops, or rubs. RESPIRATORY: diminished through out GASTROINTESTINAL: Abdomen soft, generalized tendernes, nondistended. voluntary guarding. MUSCULOSKELETAL: Extremities without clubbing, cyanosis, or edema. No joint tenderness, effusion, or edema noted. No calf tenderness. Negative Homans sign bilaterally. NEUROLOGICAL: Awake and alert. no focal deficits. Motor and sensory grossly within normal limits. Five out of 5 muscle strength in all muscle groups. Normal speech. Laboratory Laboratory Tests Test 11/03/16 15:50 White Blood Count 14.0 Red Blood Count 4.67 Hemoglobin 14.0 Hematocrit 44.1 Mean Corpuscular Volume 94.5 Mean Corpuscular Hemoglobin 30.0 Mean Corpuscular Hemoglobin 31.7 Concent Red Cell Distribution Width 14.9 Platelet Count 258 Mean Platelet Volume 8.8 Neutrophils (%) (Auto) 59.5 Lymphocytes (%) (Auto) 30.9 Monocytes (%) (Auto) 7.3 Eosinophils (%) (Auto) 1.3 Basophils (%) (Auto) 1.0 Neutrophils # (Auto) 8.3 Lymphocytes # (Auto) 4.3 Monocytes # (Auto) 1.0 Eosinophils # (Auto) 0.2 Basophils # (Auto) 0.1 CBC Comment DIFF FINAL Differential Comment Urine Color YELLOW Urine Turbidity HAZY Urine pH 5.5 Urine Specific [place] 1.025 Urine Protein TRACE Urine Glucose (UA) NEG Urine Ketones NEG Urine Occult Blood NEG Urine Nitrite NEG Urine Bilirubin NEG Urine Urobilinogen LESS THAN 2.0 Urine Leukocyte Esterase MOD Urine RBC LESS THAN 1 Urine WBC 21 Urine Squamous Epithelial 2 Cells Urine Bacteria OCC Urine Hyaline Casts 2 Urine Mucus FEW Microscopic Urinalysis Comment CULTURE INDICATED Sodium Level 135 Potassium Level 4.1 Chloride Level 95 Carbon Dioxide Level 29.7 Anion Gap 10 Blood Urea Nitrogen 16 Creatinine 1.09 Estimat Glomerular Filtration 49 Rate Random Glucose 131 Calcium Level 14.5 Protein Corrected Calcium 14.2 Total Bilirubin 0.5 Aspartate Amino Transf 45 (AST/SGOT) Alanine Aminotransferase 57 (ALT/SGPT) Alkaline Phosphatase 89 Total Creatine Kinase 56 Troponin I LESS THAN 0.02 Total Protein 7.5 Albumin 3.8 Lipase 77 Date/Time Procedure Status Source Growth 11/03/16 15:50 Urine Culture Received Urine Clean Catch Pending Result Diagram: 11/03/16 1550 11/03/16 1550 Imaging Last Impressions Chest X-Ray 11/03/16 1508 Signed Impressions: Service Date/Time: Thursday, November 03, 2016 15:07 - CONCLUSION: Stable chest x-ray without acute finding. The chronic blunting of the left costophrenic sulcus has been demonstrated to represent an enlarged pericardial fat pad with adjacent atelectasis or scar. Patric Traylor MD Assessment and Plan Problem List: (1) Abdominal pain ICD Code: R10.9 Status: Acute (2) Nausea & vomiting ICD Code: R11.2 Status: Acute (3) Diarrhea ICD Code: R19.7 Status: Acute (4) Urinary tract infection ICD Code: N39.0 Status: Acute Assessment and Plan Abdominal pain with nausea/vomiting and diarrhea Elevated AST/ALT, AST [address] 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 Hepatitis profile Abdominal liver US hypercalcemia- protein corrected calcium 14.2 discussed with patient on over use of Tums OTC IV hydration DM type 2 diabetic diet continue home glipizide hold Metformin Hypothyroidism check TSH continue Synthroid home dose COPD- on 2L NC chronically continue home prednisone 5 mg daily, Duonebs QID, Breo inhaler daily UTI await urine culture DVT prophylaxis SCDs Full Code Physician Certification 2 Midnight Certification Type: Admission for Inpatient Services Order for Inpatient Services The services are ordered in accordance with Medicare regulations or non- Medicare payer requirements, as applicable. In the case of services not specified as inpatient-only, they are appropriately provided as inpatient services in accordance with the 2-midnight benchmark. Estimated LOS (days): 3 days is the estimated time the patient will need to remain in the hospital, assuming treatment plan goals are met and no additional complications. Post-Hospital Plan: Home Notes: This note was transcribed by scribe [Ashley Patton]. I, Dr. Sachin Reyes personally performed the history, physical exam, and medical decision making; and confirmed the accuracy of the information in the transcribed note. Authenticated by Dr. Sachin Reyes on 11/04/16 at 00:38. Ashley Patton Nov 03, 2016 17:40 Sachin Reyes MD Nov 04, 2016 00:38
[2016-11-03] MEDS ORDERED: LACTULOSE SYRUP 20 GM/30 ML CUP PO PRN (17:45)
[2016-11-03] MEDS ORDERED: BISACODYL 10 MG SUPP RECTAL PRN (17:45)
[2016-11-03] MEDS ORDERED: SODIUM CHLORIDE 0.9% FLUSH 10 ML FLUSH IV FLUSH PRN (17:45)
[2016-11-03] MEDS ORDERED: SENNOSIDES 8.6 MG TAB PO PRN (17:45)
[2016-11-03] MEDS ORDERED: MAGNESIUM HYDROXIDE SUSP 30 ML CUP PO PRN (17:45)
[2016-11-03] MEDS ORDERED: NALOXONE HCL 0.4 MG/ML AMP IV PRN (17:45)
[2016-11-03 19:04] VITALS: BP 122/70; PULSE 97; RESP 18; O2SAT 99
[2016-11-03] MEDS: SODIUM CHLOR 0.9% 1000 ML INJ 1,000 ML IV SCH ×2 (20:00→23:52)
[2016-11-03] MEDS: predniSONE 5 MG TAB PO SCH (20:42)
[2016-11-03] MEDS: glipiZIDE 5 MG TAB PO SCH (20:42)
[2016-11-03] MEDS: ONDANSETRON HCL 4 MG/2 ML VIAL IVP PRN (20:42)
[2016-11-03] MEDS: ATORVASTATIN 20 MG TAB PO SCH (20:42)
[2016-11-03] MEDS: DOCUSATE SODIUM 50 MG/SENNA 8.6 MG TAB PO SCH (20:43)
[2016-11-03] MEDS: SODIUM CHLORIDE 0.9% FLUSH 10 ML FLUSH IV FLUSH SCH (20:43)
[2016-11-03 20:47] VITALS: BP 172/81; PULSE 92; RESP 20; TEMP 96.5; O2SAT 93
[2016-11-03] MEDS: RESP: ALBUTEROL 2.5 MG/IPRATROPIUM 0.5 MG NEB (SCH) NEB (21:00)
[2016-11-03 21:25] VITALS: PULSE 84
[2016-11-03] MEDS ORDERED: PROMETHAZINE INJ 25 MG/ML VIAL IM ONE (21:30)
[2016-11-03] MEDS: MORPHINE SULFATE 4 MG/ML INJ IV PUSH PRN (22:01)
[2016-11-04] VITALS (12 sets, daily range): BP systolic 132–143; BP diastolic 63–71; PULSE 70–91; RESP 16–18; TEMP 97–98.6; O2SAT 93–97
[2016-11-04] MEDS: SODIUM CHLOR 0.9% 1000 ML INJ 1,000 ML IV SCH ×2 (05:41→16:41)
[2016-11-04] MEDS: LEVOTHYROXINE SODIUM 125 MCG TAB PO SCH (05:41)
[2016-11-04] MEDS: ONDANSETRON HCL 4 MG/2 ML VIAL IVP PRN ×3 (05:42→18:00)
[2016-11-04] MEDS: MORPHINE SULFATE 4 MG/ML INJ IV PUSH PRN (05:42)
--- NOTE | 2016-11-04 07:34 | MB ---
cc: RESHMA PATRCIK DATE OF CONSULTATION 11/04/2016 DATE OF 1945 SERVICE GI ATTENDING PHYSICIAN Reshma Patrick MD HISTORY This is a 71-year-old lady known to Dr. Degroot from the office who comes into the hospital complaining of having nausea, vomiting, and abdominal pain. She was seen in the emergency room four days prior to admission for a urinary tract infection and was placed on Macrobid. She came back to the hospital complaining of having abdominal discomfort diffusely around the abdomen radiating to the right flank associated with waves of nausea, vomiting and then episodes of diarrhea. She complains of having at least three to four loose nonbloody bowel movements. Denies any melena or hematochezia. Denies any hematemesis. PAST MEDICAL HISTORY 1. Diabetes mellitus 2. Hypothyroidism 3. Morbid obesity 4. COPD with oxygen dependent 2 liters 5. Coronary artery disease PAST SURGICAL HISTORY 1. 2. Left lower extremity repair 3. Ear surgery ALLERGIES FLAGYL CAUSES RASH, LOVASTATIN, STATINS, OMEPRAZOLE WITH UPSET STOMACH. MEDICATIONS Home medications include: 1. Macrobid 2. Atorvastatin 3. Fluticasone 4. Levothyroxine 5. Lasix 6. Mobic 7. Allopurinol 8. Glipizide 9. Potassium 10. Aspirin 11. Metformin 12. Prednisone FAMILY HISTORY No GI malignancies. SOCIAL HISTORY Denies any regular current tobacco use or alcohol use. REVIEW OF SYSTEMS A twelve-point review system was obtained and showed negative or noncontributory except for the above-mentioned in the HPI. PHYSICAL EXAMINATION VITAL SIGNS: 97, 81 16, 141/68 and 100% on two liters. GENERAL: Alert and oriented no acute distress. Obese. EYES: Pupils equal, round, reactive to light. HEENT: Mucosa moist and pink. Extraocular movements are intact. NECK: Supple, no carotid bruits noted. No thyromegaly appreciated. No JVD appreciated. CARDIOVASCULAR: Regular rate and rhythm. No murmurs heard. RESPIRATORY: Clear to auscultation bilaterally. Non-labored breath sounds. No wheezing heard. ABDOMEN: Soft. Mild tenderness to palpation in the midabdomen. No rebound, no guarding. Bowel sounds heard in all four quadrants. Morbid obesity limits abdominal exam. Hepatomegaly appreciated. No periumbilical or flank ecchymosis. GENITOURINARY: No CVA angle tenderness noted. LYMPHATICS: No lymph nodes. No cervical lymphadenopathy identified. MUSCULOSKELETAL: Equal strength in the upper and lower extremities. No edema noted. NEUROLOGIC: Alert and oriented. No focal deficits. PSYCHIATRIC: Cooperative mood and affect. LABORATORY DATA WBC 14, hemoglobin 14, platelets 258. Sodium 135, potassium 4.0, chloride 95, bicarb 29, BUN 16, creatinine 1.09, calcium 14.5, corrected calcium 14.2, total bili 0.5, AST 45, ALT 57, alk phos 89, lipase 77, TSH of 5. Urinalysis positive. Serology hepatitis A, B and C pending. IMPRESSION 1. Abdominal pain associated nausea, vomiting and diarrhea may be secondary to gastroenteritis. 2. History of diarrhea. Has not had the a bowel movement since admission, therefore stool samples have not been able to be Sent. 3. Hypercalcemia of unclear etiology. 4. Urinary tract infection 5. Elevated LFTs, suspect secondary to fatty liver disease. 6. Morbid obesity 7. COPD on oxygen two liters RECOMMENDATIONS 1. Await ultrasound of the abdomen to evaluate for any acute pathology. 2. If the patient has evidence of diarrhea, then recommend stool studies for C. difficile given her recent antibiotic use for urinary tract infection. 3. We will start the patient on Protonix 40 mg once a day. 4. Diet as tolerated. 5. Workup and management for hyperkalemia and UTI. Thank you for allowing us to participate in the care of this patient. We will follow along with you and make recommendations as per the patient's clinical course. MD DARYL Moran/JUSTYNA /7:02 AM /7:15 AM
[2016-11-04 07:53] LABS: AUTOMATED NEUTROPHIL # 6.7 TH/MM3 (1.8-7.7); BASOPHIL # 0.1 TH/MM3 (0-0.2); BASOPHIL % 0.6 % (0.0-2.0); EOSINOPHIL # 0.1 TH/MM3 (0-0.4); EOSINOPHIL % 1.2 % (0.0-4.0); HEMATOCRIT 40.7 % (35.0-46.0); HEMO FLAGS DIFF FINAL; LYMPH % 23.8 % (9.0-44.0); LYMPHOCYTE # 2.4 TH/MM3 (1.0-4.8); MEAN CELL VOLUME 95.8 FL (80.0-100.0); MEAN CORPUSCULAR HEMOGLOBIN 31.6 PG (27.0-34.0); MONO % 6.5 % (0.0-8.0); NEUT % 67.9 % (16.0-70.0); PLATELET COUNT 192 TH/MM3 (150-450); RED BLOOD COUNT 4.25 MIL/MM3 (4.00-5.30); RED CELL DISTRIBUTION WIDTH 14.9 % (11.6-17.2); WHITE BLOOD COUNT 9.9 TH/MM3 (4.0-11.0)
[2016-11-04] MEDS: RESP: ALBUTEROL 2.5 MG/IPRATROPIUM 0.5 MG NEB (SCH) NEB ×4 (08:02→20:02)
[2016-11-04 08:27] LABS: BICARBONATE 28.8 MEQ/L (21.0-32.0); POTASSIUM 4.8 MEQ/L (3.5-5.1); TOTAL BILIRUBIN ADULT 0.5 MG/DL (0.2-1.0)
[2016-11-04 08:37] LABS: CALCIUM-PROTEIN CORRECTED 12.3 MG/DL (8.5-10.1)
[2016-11-04] MEDS: ASPIRIN 325 MG TAB PO SCH (09:17)
[2016-11-04] MEDS: FUROSEMIDE 20 MG TAB PO SCH (09:27)
[2016-11-04] MEDS: SODIUM CHLORIDE 0.9% FLUSH 10 ML FLUSH IV FLUSH SCH ×2 (09:27→21:00)
[2016-11-04] MEDS: DOCUSATE SODIUM 50 MG/SENNA 8.6 MG TAB PO SCH ×2 (09:27→21:55)
[2016-11-04] MEDS: PANTOPRAZOLE SOD 40 MG DELAYED RELEASE TAB PO SCH (09:27)
[2016-11-04] MEDS: ALLOPURINOL 300 MG TAB PO SCH (09:27)
[2016-11-04] MEDS: glipiZIDE 5 MG TAB PO SCH ×2 (09:27→21:51)
[2016-11-04] MEDS: predniSONE 5 MG TAB PO SCH ×2 (09:27→21:51)
--- NOTE | 2016-11-04 10:01 | RADRPT ---
EXAM DATE/TIME: 11/04/2016 08:26 [facility] COMPARISON: CT ABDOMEN & PELVIS W CONTRAST, October 28, 2016, 13:56. EXTERNAL COMPARISON : [facility], US ABDOMEN LIVER, July 31, 2016 INDICATIONS : Abnormal labs. MEDICAL HISTORY : Hypercholesterolemia. Hypertension. Chronic obstructive pulmonary disease. Cardiovascular disease. Di abetes mellitus type 2. Coronary artery disease. GERD. Stage III kidney disease. SURGICAL HISTORY : Cholecystectomy. Bladder sling. Cardiac stents. Cardiac catheterization. Orthopedic surgery, left leg and wrist. ENCOUNTER: Initial ACUITY: 1 day PAIN SCORE: 5/10 LOCATION: Abdomen. MEASUREMENTS: LIVER: 19.4 cm length COMMON DUCT: 4 mm RIGHT KIDNEY: 9.2 x 4.8 x 3.7 cm SPLEEN: 12.9 cm length FINDINGS: LIVER: Echogenic suggesting fatty infiltration. COMMON DUCT: No intraluminal mass or stone visualized. GALLBLADDER: Contains no stones, demonstrates no wall thickening or pericholecystic fluid. PANCREAS: The visualized portions are within normal limits. RIGHT KIDNEY: Somewhat small and echogenic without hydronephrosis. SPLEEN: Mildly prominent at 13 cm. CONCLUSION: 1. Mild fatty infiltration . CT scan had suggested mild cirrhosis. 2. Spleen is probably normal when compared to the CT 3. There is no ascites. Donny Gomez MD FACR on November 04, 2016 at 9:57 Board Certified Radiologist. This report was verified electronically.
--- NOTE | 2016-11-04 10:15 | EKG ---
Date Performed: 11/03/2016 Time Performed: 16:48:37 PTAGE: 71 years EKG: Sinus rhythm MARKED LEFT AXIS DEVIATION ABNORMAL ECG PREVIOUS TRACING : 10/28/2016 09.45 DOCTOR: Fredis Marie Interpretating Date/Time 11/04/2016 10:13:04
[2016-11-04] MEDS ORDERED: GLUCAGON 1 MG/ML VIAL OTHER PRN (14:00)
[2016-11-04] MEDS ORDERED: DEXTROSE 50% IN WATER 50 ML VIAL(D50) IV PUSH PRN (14:00)
[2016-11-04] MEDS: INSULIN ASPART SUPPLEMENTAL SCALE SQ SCH ×2 (16:57→22:01)
[2016-11-04 17:03] LABS: HEMOGLOBIN A1a 1.2 %; HEMOGLOBIN A1b 2.6 %; HEMOGLOBIN Ao 81.2 %; HEMOGLOBIN LA1C 2.5 %; HEMOGLOBIN P3 4.5 %
--- NOTE | 2016-11-04 17:21 | HHI.PR ---
Subjective Remarks Patient says she is feeling all right. Denies any chest pain or shortness of breath. She has not had a bowel movement yet today. Reports nausea resolved today Objective Vital Signs Date Time Temp Pulse Resp B/P Pulse Ox O2 Delivery O2 Flow Rate FiO2 11/04/16 16:36 95 Nasal Cannula 2.00 11/04/16 16:00 97.0 70 18 142/71 95 11/04/16 12:16 76 11/04/16 11:45 97.9 80 18 134/70 94 11/04/16 08:07 95 Nasal Cannula 2.00 11/04/16 08:00 98.2 76 18 138/69 95 11/04/16 08:00 79 11/04/16 05:49 97 Nasal Cannula 2.00 11/04/16 04:00 97.0 81 16 141/68 95 11/04/16 00:00 97.7 80 18 143/63 95 11/04/16 00:00 79 11/03/16 21:25 84 11/03/16 20:47 96.5 92 20 172/81 93 11/03/16 19:04 97 18 122/70 99 Nasal Cannula 2 I/O 11/03/16 11/03/16 11/03/16 11/04/16 11/04/16 11/04/16 07:00 15:00 23:00 07:00 15:00 23:00 Intake Total 100 ml 0 ml 1469 ml Output Total 200 ml 400 ml 850 ml Balance -100 ml -400 ml 619 ml Intake Oral 100 ml 0 ml 960 ml IV Total 509 ml Output Urine Total 200 ml 400 ml 850 ml # Bowel Movements 0 0 Result Diagram: 11/04/16 0711 11/04/16 0711 Objective Remarks GENERAL: patient lying in bed. Appears comfortable. Alert and oriented 3. SKIN: Warm and dry. HEAD: Normocephalic. EYES: No scleral icterus. No injection or drainage. NECK: Supple, trachea midline. No JVD or lymphadenopathy. CARDIOVASCULAR: Regular rate and rhythm without murmurs, gallops, or rubs. RESPIRATORY: Breath sounds equal bilaterally. No accessory muscle use. GASTROINTESTINAL: Abdomen soft, non-tender, nondistended. MUSCULOSKELETAL: No cyanosis, or edema. BACK: Nontender without obvious deformity. No CVA tenderness. A/P Assessment and Plan ====11/04/16==== Calcium improved, protein corrected calcium 12.3. Continue IV fluids. Continue to monitor. //Abdominal pain with nausea/vomiting and diarrhea //Elevated AST/ALT, AST 45 ALT 57. Improving. consult Dr. Degroot- patient's outpatient certification officer Hepatitis profile Abdominal liver US with what appears to be cirrhosis. GI following. Appreciate assistance. //hypercalcemia- protein corrected calcium 14.2 discussed with patient on over use of Tums OTC IV hydration 11/04 Calcium improved, protein corrected calcium 12.3. Continue IV fluids. Continue to monitor. //DM type 2 diabetic diet continue home glipizide Continue to hold Metformin. A1c pending. //Hypothyroidism TSH 5.15. Low T3. Low normal T4. Will need to be rechecked as outpatient. //COPD- on 2L NC chronically continue home prednisone 5 mg daily, Duonebs QID, Breo inhaler daily //Possible UTI with mixed samantha. Unlikely. No symptoms. DVT prophylaxis SCDs Discharge Planning discharge home tomorrow if calcium improved. Sachin Reyes MD Nov 04, 2016 17:20
[2016-11-04] MEDS: FLUTICASONE 200 MCG/VILANTEROL 25 MCG INHALER INH SCH (17:52)
[2016-11-04] MEDS ORDERED: ENOXAPARIN SODIUM 30 MG/0.3 ML SYRINGE SQ SCH (18:00)
[2016-11-04 21:02] LABS: PROTHROMBIN TIME - PATIENT 11.4 SEC (9.8-11.6)
[2016-11-04] MEDS: ATORVASTATIN 20 MG TAB PO SCH (21:51)
[2016-11-05] VITALS: BP 119/58; PULSE 98; RESP 18; TEMP 98.1; O2SAT 93
[2016-11-05] MEDS ORDERED: ACETAMINOPHEN 325 MG TAB PO ONE (00:15)
[2016-11-05] MEDS: LEVOTHYROXINE SODIUM 125 MCG TAB PO SCH (05:39)
[2016-11-05] MEDS: SODIUM CHLOR 0.9% 1000 ML INJ 1,000 ML IV SCH (05:39)
[2016-11-05] MEDS: INSULIN ASPART SUPPLEMENTAL SCALE SQ SCH ×2 (05:52→12:35)
[2016-11-05] MEDS: RESP: ALBUTEROL 2.5 MG/IPRATROPIUM 0.5 MG NEB (SCH) NEB ×3 (07:53→14:36)
[2016-11-05 07:56] VITALS: O2SAT 95
[2016-11-05 08:00] VITALS: BP 142/63; PULSE 82; PULSE 83; RESP 20; TEMP 97; O2SAT 93
[2016-11-05] MEDS: FLUTICASONE 200 MCG/VILANTEROL 25 MCG INHALER INH SCH (09:00)
[2016-11-05] MEDS: SODIUM CHLORIDE 0.9% FLUSH 10 ML FLUSH IV FLUSH SCH (09:00)
[2016-11-05 09:15] LABS: BICARBONATE 26.4 MEQ/L (21.0-32.0); MAGNESIUM 1.8 MG/DL (1.5-2.5); POTASSIUM 4.5 MEQ/L (3.5-5.1)
[2016-11-05 09:17] LABS: AUTOMATED NEUTROPHIL # 5.6 TH/MM3 (1.8-7.7); BASOPHIL # 0.1 TH/MM3 (0-0.2); BASOPHIL % 0.7 % (0.0-2.0); EOSINOPHIL # 0.1 TH/MM3 (0-0.4); HEMATOCRIT 34.7 % (35.0-46.0); LYMPH % 24.2 % (9.0-44.0); MEAN CELL VOLUME 94.8 FL (80.0-100.0); MEAN CORPUSCULAR HEMOGLOBIN 31.9 PG (27.0-34.0); MEAN CORPUSCULAR HGB CONC 33.7 % (32.0-36.0); MONO % 5.8 % (0.0-8.0); NEUT % 68.3 % (16.0-70.0); PLATELET COUNT 139 TH/MM3 (150-450); RED BLOOD COUNT 3.66 MIL/MM3 (4.00-5.30); RED CELL DISTRIBUTION WIDTH 14.8 % (11.6-17.2); WHITE BLOOD COUNT 8.3 TH/MM3 (4.0-11.0)
[2016-11-05 10:02] LABS: HEMO FLAGS AUTO DIFF
[2016-11-05 10:04] LABS: PLATELET ESTIMATE SMEAR LOW (NORMAL); PLATELET MORPHOLOGY NORMAL (NORMAL); SCAN/DIFF AUTO DIFF CONFIRMED
[2016-11-05] MEDS: ASPIRIN 325 MG TAB PO SCH (10:21)
[2016-11-05] MEDS: DOCUSATE SODIUM 50 MG/SENNA 8.6 MG TAB PO SCH (10:21)
[2016-11-05] MEDS: ALLOPURINOL 300 MG TAB PO SCH (10:21)
[2016-11-05] MEDS: FUROSEMIDE 20 MG TAB PO SCH (10:21)
[2016-11-05] MEDS: glipiZIDE 5 MG TAB PO SCH (10:22)
[2016-11-05] MEDS: PANTOPRAZOLE SOD 40 MG DELAYED RELEASE TAB PO SCH (10:22)
[2016-11-05 12:00] VITALS: BP 130/72; PULSE 77; RESP 18; TEMP 96.5; O2SAT 94
--- NOTE | 2016-11-05 14:20 | HHI.GIFU ---
GI Follow-up Note Consult Follow-up Subjective: Patient sitting in bed, no new n/v or diarrhea. tolerated diet well today Objective: PHYSICAL EXAMINATION: Vitals signs stable No fever HEENT: Pupils round and reactive to light; normocephalic; atraumatic; no jaundice. Throat is clear. NECK: Neck is supple, no JVD, no lymphadenopathy. CHEST: Chest is clear to auscultation and percussion. CARDIAC: Regular rate and rhythm with no murmur gallop or rubs. ABDOMEN: Soft, nondistended, nontender; no hepatosplenomegaly; bowel sounds are present in all four quadrants. EXTREMITIES: No clubbing, cyanosis, or edema. SKIN: Normal; no rash; no jaundice. 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 ASSESSMENT/PLAN: 1. N/v/Diarrhea resolved 2. Abdo pain resolving 3. Hyperkalemia (improving ) unclear etiology, may need further work up ? 4. Pt had normal EGD and colon in september 2015. PLAN: 1. Zantac 150 mg po daily 2. Diet as tolerated 3. No urgent plan or need for endoscopy 4. No objection to d/c from GI stand point It was a pleasure seeing Francisca Jeter. Thank you for this consult. Entered by: Mando Brar MD Nov 05, 2016 14:20
[2016-11-05] MEDS ORDERED: ZANT150T2 PO (15:08)
[2016-11-05] MEDS ORDERED: FAMOTIDINE 20 MG TAB PO SCH (21:00)
--- NOTE | 2016-11-05 22:18 | HHI.DS ---
Discharge Summary Admission Date Nov 03, 2016 at 17:35 Discharge Date: Nov 05, 2016 Admitting Diagnosis hypercalcemia, abdominal pain (1) Abdominal pain ICD Code: R10.9 (2) Nausea & vomiting ICD Code: R11.2 (3) Diarrhea ICD Code: R19.7 (4) Urinary tract infection ICD Code: N39.0 Procedures no invasive procedures. Brief History - From Admission Written by Ashley Patton, acting as scribe for Dr. Reyes on 11/03/16 at 18 :20. 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 Patient was seen in ER 4 days ago was treated for urinary tract infection with Macrobid. A CT abdomen and pelvis was unremarkable at that time. Today she presents with abdominal pain for the past 1.5 weeks. Patient reports the pain waxes and wains in intensity is associated with N/V and Diarrhea. Stool described as three brown, "mushy," BMs per day. Patient denies black tarry stool or bright red blood per rectum. Patient also denies coffee ground appearance to vomitions or bright red blood in vomit. Patient has been taking Tums OTC at home with no relief. Patient also endorses fatigue and posterior headache without nuchal rigidity. Patient denies fevers, chills, chest pain, change in baseline shortness fo breath due to her COPD, no focal weakness, changes in vision, dysuria or increased urinary frequency. Patient is unsure if she has lost any weight. CBC/BMP: 11/05/16 0725 11/05/16 0725 Significant Findings Laboratory Tests Test 11/03/16 11/04/16 11/04/16 11/05/16 15:50 07:11 11:28 07:25 White Blood Count 14.0 TH/MM3 (4.0-11.0) Mean Corpuscular Hemoglobin 31.7 % Concent (32.0-36.0) Neutrophils # (Auto) 8.3 TH/MM3 (1.8-7.7) Monocytes # (Auto) 1.0 TH/MM3 (0-0.9) Urine Turbidity HAZY (CLEAR) Urine Leukocyte Esterase MOD (NEG) Urine WBC 21 /hpf (0-5) Urine Bacteria OCC /hpf (NONE) Urine Mucus FEW /lpf (OCC) Sodium Level 135 MEQ/L 135 MEQ/L (136-145) (136-145) Chloride Level 95 MEQ/L (98-107) Creatinine 1.09 MG/DL 1.10 MG/DL 1.13 MG/DL (0.50-1.00) (0.50-1.00) (0.50-1.00) Estimat Glomerular Filtration 49 ML/MIN (>89) 49 ML/MIN (>89) 47 ML/MIN (>89) Rate Random Glucose 131 MG/DL 188 MG/DL 258 MG/DL (74-106) (74-106) (74-106) Calcium Level 14.5 MG/DL 11.8 MG/DL 10.2 MG/DL (8.5-10.1) (8.5-10.1) (8.5-10.1) Protein Corrected Calcium 14.2 MG/DL 12.3 MG/DL (8.5-10.1) (8.5-10.1) Aspartate Amino Transf 45 U/L (15-37) 46 U/L (15-37) (AST/SGOT) Alanine Aminotransferase 57 U/L (10-53) (ALT/SGPT) Troponin I LESS THAN 0.02 NG/ML (0.02-0.05) Thyroid Stimulating Hormone 5.150 uIU/ML 3rd Gen (0.358-3.740) Hemoglobin A1c 7.4 % (4.3-6.0) Total Triiodothyronine 55 NG/DL (60-181) Red Blood Count 3.66 MIL/MM3 (4.00-5.30) Hematocrit 34.7 % (35.0-46.0) Platelet Count 139 TH/MM3 (150-450) Platelet Estimate LOW (NORMAL) Blood Urea Nitrogen 22 MG/DL (7-18) Phosphorus Level 2.3 MG/DL (2.5-4.9) Albumin 3.0 GM/DL (3.4-5.0) PE at Discharge GENERAL: sitting up in bed. Appears comfortable. SKIN: Warm and dry. HEAD: Normocephalic. EYES: No scleral icterus. No injection or drainage. NECK: Supple, trachea midline. No JVD or lymphadenopathy. CARDIOVASCULAR: Regular rate and rhythm without murmurs, gallops, or rubs. RESPIRATORY: Breath sounds equal bilaterally. No accessory muscle use. GASTROINTESTINAL: Abdomen soft, non-tender, nondistended. MUSCULOSKELETAL: No cyanosis, or edema. BACK: Nontender without obvious deformity. No CVA tenderness. Pt update on day of discharge patient says she feels well. Would like to go home. Denies any chest pain or shortness of breath. Denies any nausea or vomiting Hospital Course ====11/04/16==== Calcium improved, protein corrected calcium 12.3. Continue IV fluids. Continue to monitor. //Abdominal pain with nausea/vomiting and diarrhea //Elevated AST/ALT, AST 45 ALT 57. Improving. consult Dr. Degroot- patient's outpatient help desk analyst Hepatitis profile Abdominal liver US with what appears to be cirrhosis. GI following. Appreciate assistance. //hypercalcemia- protein corrected calcium 14.2 discussed with patient on over use of Tums OTC IV hydration 11/04 Calcium improved, protein corrected calcium 12.3. Continue IV fluids. Continue to monitor. //DM type 2 diabetic diet continue home glipizide Continue to hold Metformin. A1c pending. //Hypothyroidism TSH 5.15. Low T3. Low normal T4. Will need to be rechecked as outpatient. //COPD- on 2L NC chronically continue home prednisone 5 mg daily, Duonebs QID, Breo inhaler daily //Possible UTI with mixed samantha. Unlikely. No symptoms. DVT prophylaxis SCDs Pt Condition on Discharge: Good Discharge Disposition: Discharge Home Discharge Time: > 30 minutes Discharge Instructions DIET: Follow Instructions for: Diabetic Diet Activities you can perform: Regular-No Restrictions Follow up Referrals: Gastroenterology - 3 Weeks PCP Follow-up - 11/12/16 with Gage Finley M.d. New Orders: COMP MET PROF (CMP) - 3-5 Days New Medications: Ranitidine (Zantac) 150 Mg Tab 150 MG PO DAILY Reduce Stomach Acid #30 Ref 0 TAB Continued Medications: Allopurinol (Allopurinol) 300 Mg Tab 300 MG PO DAILY Gout #30 Ref 0 TAB Aspirin (Aspirin) 325 Mg Tab 325 MG PO DAILY #30 Ref 0 TAB Atorvastatin (Atorvastatin) 20 Mg Tab 20 MG PO HS Cholesterol Management #30 Ref 0 TAB Fluticasone-Vilanterol Inh (Breo Ellipta Inh) 200-25 Mcg/Act Inh 1 PUFF INH DAILY Use daily at the same time. #1 Ref 0 INHALER Furosemide (Lasix) 20 Mg Tab 20 MG PO DAILY DIURETIC #30 Ref 0 TAB Glipizide (Glipizide) 5 Mg Tab 5 MG PO BID Take 30 minutes before a meal Blood Sugar Management #60 Ref 0 TAB Ipratropium-Albuterol Neb (Duoneb) 0.5-2.5 Mg/3 Ml Neb 3 ML NEB QID Shortness of Breath #30 Ref 0 NEBULE Levothyroxine (Levothyroxine) 125 Mcg Tab 125 MCG PO DAILY Thyroid #30 Ref 0 TAB Meloxicam (Mobic) 15 Mg Tab 15 MG PO DAILY Ref 0 TAB Metformin (Metformin) 850 Mg Tab 1700 MG PO DAILY IN THE AM With a meal Blood Sugar Management Ref 0 TAB Metformin (Metformin) 850 Mg Tab 850 MG PO DAILY IN THE PM With a meal Blood Sugar Management Ref 0 TAB Potassium Chloride ER (Potassium Chloride ER) 10 Meq Tab 10 MEQ PO DAILY Electrolyte Replacement #30 Ref 0 TAB Prednisone (Prednisone) 5 Mg Tab 5 MG PO BID Ref 0 TAB Discontinued Medications: Nitrofurantoin Monohydrate Macrocrystals (Macrobid) 100 Mg Cap 100 MG PO BID Infection Days 7 Ref 0 CAP Sachin Reyes MD Nov 05, 2016 22:18
== END 2016-11-05 16:11 | disposition home or self-care (01) | DRG 392 ==
LOC: NEPD 14:25 → NEDA 17:35 → HOCB 20:21
PROVIDERS: ADMIT Internal Medicine; ATTEND Internal Medicine
DX: R10.9 Unspecified abdominal pain (principal); I50.9 Heart failure, unspecified; Z68.43 Body mass index [BMI] 50.0-59.9, adult; R19.7 Diarrhea, unspecified; R11.2 Nausea with vomiting, unspecified; E83.52 Hypercalcemia; J44.9 Chronic obstructive pulmonary disease, unspecified; Z99.81 Dependence on supplemental oxygen; E11.9 Type 2 diabetes mellitus without complications; Z79.84 Long term (current) use of oral hypoglycemic drugs; E03.9 Hypothyroidism, unspecified; E66.01 Morbid (severe) obesity due to excess calories; R94.5 Abnormal results of liver function studies; I25.10 Atherosclerotic heart disease of native coronary artery without angina pectoris; H91.90 Unspecified hearing loss, unspecified ear; E78.00 Pure hypercholesterolemia, unspecified; Z87.440 Personal history of urinary (tract) infections
CPT/HCPCS: 71010; 76705; 80053; 80069; 80074; 81001; 82550; 82948; 83036; 83690; 83735; 84439; 84443; 84480; 84484; 85025; 85610; 87086; 93005; 94640; 94664; 96361; 96374; J1650; J1815; J2270; J2405; J2550; J7030; J7040; J7512